=== PATIENT | male | born 1995 | race Caucasian/White ===

== ENCOUNTER 2017-08-12 01:54 | Emergency (ER) | payer BC ==
--- NOTE | 2017-08-12 01:55 | EDPHY ---
H & P Time Seen by Provider: 08/12/17 01:55 HPI/ROS: HPI CHIEF COMPLAINT: Heavy piece ice fell on left hand HISTORY OF PRESENT ILLNESS: This patient is a 21-year-old male he is a [employer] student, somehow a heavy piece of ice fell on his left hand. He states he had a ice block that was made into a liquor luge. He did have multiple shots this evening and the ice block fell onto his left hand. He sustained injury or crush injury to the 3rd and 4th digits distal aspect. He reports his tetanus shot is up-to-date. He denies any other areas of injury. Patient states he was carrying the Ice Luge with his ellen had slipped out of his hand and he continues to carry on it in it dropped onto his left hand. Past Medical History: Denies medical history Past Surgical History: Denies surgical history Social History: Alcohol this evening. [employer] student. Denies illicit drugs. Family History: Noncontributory ROS REVIEW OF SYSTEMS: A comprehensive 10 point review of systems is otherwise negative aside from elements mentioned in the history of present illness. Exam Constitutional triage nursing summary reviewed, vital signs reviewed, awake/ alert. Eyes normal conjunctivae and sclera, EOMI, PERRLA. HENT normal inspection, atraumatic, moist mucus membranes, no epistaxis, neck supple/ no meningismus, no raccoon eyes. Respiratory clear to auscultation bilaterally, normal breath sounds, no respiratory distress, no wheezing. Cardiovascular rate normal, regular rhythm, no murmur, no edema, distal pulses normal. Gastrointestinal soft, non-tender, no rebound, no guarding, normal bowel sounds, no distension, no pulsatile mass. Genitourinary no CVA tenderness. Musculoskeletal left hand: The left hand is neurovascular intact good distal pulse, is full range of motion, sensation intact however he has a crush injury noted to the 3rd and 4th digits distal aspect. Both nails are avulsed from the nail bed. no midline vertebral tenderness, full range of motion, no calf swelling, no tenderness of extremities, no meningismus, good pulses, neurovascularly intact. Skin pink, warm, & dry, no rash, skin atraumatic. Neurologic awake, alert and oriented x 3, AAOx3, moves all 4 extremities equally, motor intact, sensory intact, CN II-XII intact, normal cerebellar, normal vision, normal speech. Psychiatric normal mood/affect. Heme/Lymph/Immune no lymphadenopathy. Differential Diagnosis: Includes but is not limited to in a particular order crush injury left hand, digital fractures, nail bed injuries, avulsed nails, multiple lacerations, soft tissue injury, bony abnormality Medical Decision Making: Plan for this patient will x-ray left hand start off with, will perform digital blocks, clean his wounds out, may need to consult Hand surgery. Rule out open hand fractures. Re-evaluation: Ed Procedure: Digital Block of Third and Fourth Digit, left Hand. Verbal consent was obtained. 1% lidocaine was used for digital block. Palmar aspect left hand at the base of the 3rd 4th digit 5 cc of lidocaine without epinephrine was instilled into the space. The area was cleaned and prepped appropriately. It was done under sterile conditions. He tolerated very well. He has good anesthesia of his 3rd and 4th digit on the left hand. X-ray reviewed of the left hand shows tuft fractures of the 3rd and 4th digit worse on the 4th digit than the 3rd. Complete nail avulsions present. Image interpreted by myself. 0230AM: Cnsulted Dr. Childers, discussed the case in detail. Will attempt to repair here in the emergency room with nail bed injury. 0315: Multiple attempts were made to get the nail back in place in repair his finger lacerations however had a great difficulty getting the nail 2 tacked down and stayed down. I have asked Dr. Childers to come and see and evaluate the patient. Mean while the patient has been given oral pain medicine [place] as well as Ancef IM. 0429AM: Dr. Childers has seen evaluated the patient. He is made repaired to the patient's nails and fingers. He has tacked down the patient's nails over. His lacerations. Source: Patient Constitutional: Initial Vital Signs Temperature (C) 36.8 C 08/12/17 01:57 Heart Rate 91 08/12/17 01:57 Respiratory Rate 16 08/12/17 01:57 Blood Pressure 121/65 H 08/12/17 01:57 O2 Sat (%) 97 08/12/17 01:57 O2 Delivery Mode Room Air Allergies/Adverse Reactions: No Known Allergies Allergy (Unverified 08/12/17 01:55) Home Medications: Medication Instructions Recorded Cephalexin [Keflex] 500 mg PO Q6H #28 cap 08/12/17 Hydrocodone/APAP 5/325 [[place] 1 - 2 tab PO Q6H PRN #20 tab 08/12/17 5/325 (*)] Hydrocodone/APAP 5/325 [[place] 1 - 2 tab PO Q4H PRN #10 tab 08/12/17 5/325] Ibuprofen [Motrin (*)] 800 mg PO Q6-8PRN #14 tab 08/12/17 Medical Decision Making - Data Points Medications Given: Discontinued Medications Hydrocodone Bitart/Acetaminophen ([place] 10/325) 1 tab PO EDNOW ONE Stop: 08/12/17 03:16 Last Admin: 08/12/17 03:33 Dose: 1 tab Cefazolin Sodium (Ancef) 2,000 mg IM ONCE ONE PRN Reason: Protocol Stop: 08/12/17 02:15 Last Admin: 08/12/17 02:45 Dose: 2,000 mg Departure - Departure Disposition: Home, Routine, Self-Care Clinical Impression: Closed fracture of tuft of distal phalanx of finger Finger laceration Qualifiers: Encounter type: initial encounter Finger: unspecified finger Damage to nail status: with damage Foreign body presence: without foreign body Laterality: left Qualified Code(s): S61.319A - Laceration without foreign body of unspecified finger with damage to nail, initial encounter Condition: Good Instructions: Care For Your Stitches (ED), Laceration (ED) Additional Instructions: 1. Keep your fingers protected in splints. 2. Antibiotics as prescribed. 3. Ibuprofen for mild pain [place] for severe pain. 4. Sutures to be removed in 12-14 days. Follow up with Dr. Childers. 5. Follow up with Hand surgery. Call tomorrow to make a follow-up appointment. Referrals: NONE *PRIMARY CARE P,. [Primary Care Provider] - As per Instructions Cristóbal Childers MD [Medical Doctor] - As per Instructions Prescriptions: Cephalexin [Keflex] 500 mg PO Q6H #28 cap Hydrocodone/APAP 5/325 [[place] 5/325] 1 - 2 tab PO Q4H PRN #10 tab PRN Reason: Pain, Moderate Hydrocodone/APAP 5/325 [[place] 5/325 (*)] 1 - 2 tab PO Q6H PRN #20 tab PRN Reason: Pain, Breakthrough Ibuprofen [Motrin (*)] 800 mg PO Q6-8PRN #14 tab
[2017-08-12] MEDS ORDERED: CEFAZOLIN 330 MG/ML IM SYRINGE IM ONE (02:14)
[2017-08-12] MEDS ORDERED: HYDROCODONE/APAP 10/325 TAB PO ONE (03:15)
[2017-08-12 05:00] VITALS: BP 122/52
--- NOTE | 2017-08-12 07:09 | GCON ---
[f rep st] CONSULTATION EMERGENCY DEPARTMENT CONSULTATION DATE OF CONSULTATION: 08/12/2017 CHIEF COMPLAINT: Left hand, ring and long finger tip crush injuries/nail bed injury. HISTORY OF PRESENT ILLNESS: The patient is a 21-year-old [employer] student. He is right-hand dominant. He was carrying an ice shot luge with a friend at a constitution party when his friend dropped his corner and the 50 -pound ice crushed down across his ring and long fingers. He sustained disruptions of his nail beds and fractures to the tips of his ring and long fingers. He has no other associated injuries. PAST MEDICAL HISTORY: None. PAST SURGICAL HISTORY: None. MEDICATIONS: None. ALLERGIES: None. SOCIAL HISTORY: Admits to alcohol use. No tobacco use. REVIEW OF SYSTEMS: Negative for chest pain, shortness of breath, belly pain, back pain, numbness, ti ngling, other joint-related complaints. OBJECTIVE: GENERAL: He is a healthy young gentleman who is pleasant, cooperative with examination. EXTREMITIES: Examination of his left hand reveals obvious crush injury to the long and ring finger tips. The nails are completely avulsed from their eponychial fold. There is maceration of the under lying tissue with pink tip to the fingers and no proximal injuries. He has been partially digitally blocked. Sensation is currently intact to light touch throughout; however. IMAGING: X-ray demonstrates crushed tuft injury to the ring finger and tuft fracture with less commi nution to the long finger. IMPRESSION: Tuft fractures, nailbed injuries, ring and long fingers left hand. TREATMENT PLAN: I replaced a digital block with racemic mixture of Marcaine and lidocaine. The woun ds were copiously irrigated and evaluated. The nail bed on the ring finger was macerated on the long finger. There was a transverse transection, which had been sutured by the emergency department pers onnel prior to my arrival. The nail toward the eponychial fold was in appropriate position. The wou nds were irrigated. The soft tissue on the margin radially and ulnarly to the digital tips was sutur ed for soft tissue stability. The nail was replaced under the eponychial fold with usage of a [place] and a horizontal mattress suture of 3-0 nylon and a single suture was placed through the tip of the n ail and tip of the distal finger tuft for stabilization. Sterile dressing was applied, followed by t ube gauze to both fingers. The patient tolerated this well. He will continue with this dressing for additional 24 hours. He is given a prescription for antibiot ics and [place] for pain relief. He will follow up at 24 hours for repeat dressing change and evaluati on. Seek attention for increasing pain, bleeding or other focal complaint. I have discussed with kali sequeira that he will likely have nail bed irregularity given the crush injury to the nail germinal matrix a nd he will definitely lose both nails as he recovers from this injury. /[id number]/MODL
== END 2017-08-12 05:00 | disposition home or self-care (01) ==
PROC: 0HQQXZZ Repair Finger Nail, External Approach (ICD-10-PCS; principal; 2017-08-12)
DX: S62.633B Displaced fracture of distal phalanx of left middle finger, initial encounter for open fracture (principal); S62.635B Displaced fracture of distal phalanx of left ring finger, initial encounter for open fracture; S61.313A Laceration without foreign body of left middle finger with damage to nail, initial encounter; S61.315A Laceration without foreign body of left ring finger with damage to nail, initial encounter; W20.8XXA Other cause of strike by thrown, projected or falling object, initial encounter; Y99.8 Other external cause status; Y93.89 Activity, other specified

== ENCOUNTER → 2017-08-26 | Outpatient (CLI) | payer BC | LOC: BMCIMAGING 09:39 | PROVIDERS: ATTEND Physician Assistant | DX: S62.635D Displaced fracture of distal phalanx of left ring finger, subsequent encounter for fracture with routine healing (principal); S62.633D Displaced fracture of distal phalanx of left middle finger, subsequent encounter for fracture with routine healing ==